=== PATIENT | male | born 2005 | race Caucasian/White ===

== ENCOUNTER 2025-10-09 18:46 | Emergency (ER) | payer OTHER ==
[2025-10-09] MEDS: Tetracaine HCl/PF 0.5% 4 ML Bottle EYELF ONE (18:55)
[2025-10-09] MEDS: Distilled Water Ophth Irrig Soln 120 ML Bottle EYELF ONE (18:55)
[2025-10-09] MEDS: Fluorescein 1 MG Ophth Strip EYELF ONE (19:00)
[2025-10-09] MEDS: Bacitracin/Neomycin/Polymyxin B Ophth Oint 3.5 GM Tube EYELF ONE (19:09)
== END 2025-10-09 19:15 | disposition home or self-care (01) ==
LOC: CC.ED 18:46
DX: S05.02XA Injury of conjunctiva and corneal abrasion without foreign body, left eye, initial encounter (principal); Z88.0 Allergy status to penicillin; X58.XXXA Exposure to other specified factors, initial encounter
CPT/HCPCS: 99283